=== PATIENT | male | born 1955 | race Caucasian/White ===

== ENCOUNTER 2017-09-17 14:44 | Inpatient (IN) | payer OTHER ==
[~2017-09-17] VITALS: Ht 175.3 cm; Wt 95.0 kg
[~2017-09-17 14:44] MED LIST: DIPH25CA61 PO
[2017-09-17 15:02] LABS: BASOPHILS # (AUTO) 0.02 x10^3/uL (0-0.1); BASOPHILS % (AUTO) 0 % (0-1); EOSINOPHILS # (AUTO) 0.05 x10^3/uL (0-0.4); EOSINOPHILS % (AUTO) 1 % (1-7); LYMPHOCYTES # (AUTO) 1.59 x10^3/uL (1-3.4); LYMPHOCYTES % (AUTO) 16 % (22-44); MD NO; MEAN CORPUSCULAR HEMOGLOBIN 30.6 pg (27.5-34.5); MEAN CORPUSCULAR HGB CONC 33.6 g/dL (33.2-36.2); MEAN CORPUSCULAR VOLUME 90.9 fL (81-97); MEAN PLATELET VOLUME 8.1 fL (7.4-10.4); MONOCYTES # (AUTO) 0.55 x10^3/uL (0.2-0.8); MONOCYTES % (AUTO) 6 % (2-9); NEUTROPHILS # (AUTO) 7.69 x10^3/uL (1.8-6.8); NEUTROPHILS % (AUTO) 78 % (42-75); PLATELET COUNT 286 x10^3/uL (130-400); RED BLOOD COUNT 5.65 x10^6/uL (4.38-5.82); RED CELL DISTRIBUTION WIDTH 14.2 % (9.4-14.8)
[2017-09-17 15:12] LABS: INTERNATIONAL NORMALIZED RATIO 1.07 (0.93-1.1)
[2017-09-17] MEDS ORDERED: ALTEPLASE 1 MG/ML ONE (15:14)
[2017-09-17] MEDS ORDERED: ALTEPLASE IV ONE (16:00)
[2017-09-17] MEDS ORDERED: ASPIRIN 325 MG TABLET PO ONE (16:00)
[2017-09-17] MEDS ORDERED: ALTEPLASE IVPush ONE (16:00)
[2017-09-17 16:18] LABS: CHOL/HDL RATIO 4.7; LDL/HDL RATIO 3.1 (0.5-3.0)
[2017-09-17] MEDS ORDERED: ENALAPRILAT 1.25 MG/ML, 2ML IV PRN (16:30)
[2017-09-17] MEDS ORDERED: ONDANSETRON 2MG/ML, 2ML IVPush PRN (16:30)
[2017-09-17] MEDS: ATORVASTATIN 80 MG TABLET PO SCH (20:13)
[2017-09-17 20:20] VITALS: BP 139/76
[2017-09-17 20:39] VITALS: BP 139/76
[2017-09-18 00:36] VITALS: BP 147/84
[2017-09-18] MEDS: ACETAMINOPHEN 325 MG TABLET PO PRN ×3 (01:44→17:42)
[2017-09-18 03:31] VITALS: BP 177/75
[2017-09-18 04:31] LABS: TROPONIN I < 0.015 ng/mL (0.000-0.045)
[2017-09-18 04:33] LABS: LDL/HDL RATIO 3.5 (0.5-3.0)
[2017-09-18] MEDS ORDERED: LORazepam 2 MG/ML, 1ML ONE (05:27)
[2017-09-18] MEDS ORDERED: LORazepam 2 MG/ML, 1ML IVPush ONE (05:30)
[2017-09-18] MEDS ORDERED: LORazepam 2 MG/ML, 1ML IVPush PRN (05:30)
[2017-09-18] MEDS ORDERED: PROPOFOL 100 ML IV ONE (05:55)
[2017-09-18 06:30] LABS: ALANINE AMINOTRANSFERASE 19 U/L (12-78); ALBUMIN 4.1 g/dL (3.4-5.0); ANION GAP 10 mmol/L (5-15); CALCIUM 8.8 mg/dL (8.5-10.1); CHLORIDE 108 mmol/L (98-107); CREATININE 1.15 mg/dL (0.7-1.3)
[2017-09-18 06:33] LABS: ALKALINE PHOSPHATASE 65 U/L (45-117); BILIRUBIN,TOTAL 0.9 mg/dL (0.2-1.0); TOTAL PROTEIN 7.9 g/dL (6.4-8.2)
[2017-09-18 06:35] LABS: TROPONIN I < 0.015 ng/mL (0.000-0.045)
[2017-09-18] MEDS ORDERED: ETOMIDATE 20 MG/10 ML ONE (08:00)
[2017-09-18] MEDS ORDERED: SUCCINYLCHOLINE 20 MG/ML, 10ML ONE (08:00)
[2017-09-18] MEDS ORDERED: ASPIRIN 81 MG TABLET CHEW PO/NG SCH (09:00)
[2017-09-18] MEDS: PROPOFOL 100 ML IV PRN ×2 (09:53→15:18)
[2017-09-18] MEDS ORDERED: LIDOCAINE-MPF 1%, 2ML ENDO PRN (10:30)
[2017-09-18] MEDS ORDERED: PHARMACY MAY ADJ FOR RENAL FX MC SCH (10:30)
[2017-09-18 11:28] LABS: MICROSCOPIC AUTO
[2017-09-18 11:29] LABS: CULTURE INDICATED? NO
[2017-09-18] MEDS ORDERED: SODIUM CHLORIDE 0.9% 1,000ML IVBOLUS ONE (12:00)
[2017-09-18] MEDS ORDERED: ASPIRIN 81 MG TABLET CHEW ONE (13:13)
[2017-09-18] MEDS: ASPIRIN 81 MG TABLET CHEW PO SCH (13:17)
[2017-09-18 14:16] LABS: HEMOGLOBIN A1C 5.3 % (4.2-6.3)
[2017-09-18] MEDS: LACTATED RINGERS 1,000 ML IV SCH (15:18)
[2017-09-18] MEDS: AMPICILLIN/SULBACTAM 3 GM in SODIUM CHLORIDE 0.9% 100 ML IV SCH ×2 (15:21→21:08)
[2017-09-18] MEDS: ATORVASTATIN 80 MG TABLET PO SCH (21:08)
[2017-09-19] MEDS: PROPOFOL 100 ML IV PRN (01:42)
[2017-09-19] MEDS: LACTATED RINGERS 1,000 ML IV SCH ×3 (01:42→19:30)
[2017-09-19] MEDS: AMPICILLIN/SULBACTAM 3 GM in SODIUM CHLORIDE 0.9% 100 ML IV SCH ×4 (04:24→21:05)
[2017-09-19 04:45] LABS: BASOPHILS # (AUTO) 0.04 x10^3/uL (0-0.1); BASOPHILS % (AUTO) 0 % (0-1); EOSINOPHILS # (AUTO) 0.03 x10^3/uL (0-0.4); EOSINOPHILS % (AUTO) 0 % (1-7); LYMPHOCYTES # (AUTO) 1.45 x10^3/uL (1-3.4); LYMPHOCYTES % (AUTO) 11 % (22-44); MD NO; MEAN CORPUSCULAR HEMOGLOBIN 31.3 pg (27.5-34.5); MEAN CORPUSCULAR HGB CONC 34.7 g/dL (33.2-36.2); MEAN CORPUSCULAR VOLUME 90.2 fL (81-97); MEAN PLATELET VOLUME 8.1 fL (7.4-10.4); MONOCYTES % (AUTO) 10 % (2-9); NEUTROPHILS # (AUTO) 10.77 x10^3/uL (1.8-6.8); NEUTROPHILS % (AUTO) 79 % (42-75); PLATELET COUNT 215 x10^3/uL (130-400); RED BLOOD COUNT 4.83 x10^6/uL (4.38-5.82); RED CELL DISTRIBUTION WIDTH 14.4 % (9.4-14.8)
[2017-09-19 04:58] LABS: ALANINE AMINOTRANSFERASE 13 U/L (12-78); ALBUMIN 3.2 g/dL (3.4-5.0); ANION GAP 8 mmol/L (5-15); CALCIUM 8.4 mg/dL (8.5-10.1); CHLORIDE 112 mmol/L (98-107); CREATININE 0.95 mg/dL (0.7-1.3)
[2017-09-19 05:00] LABS: ALKALINE PHOSPHATASE 49 U/L (45-117); BILIRUBIN,TOTAL 1.5 mg/dL (0.2-1.0); TOTAL PROTEIN 6.6 g/dL (6.4-8.2)
[2017-09-19] MEDS: PANTOPRAZOLE 40 MG IV IVPush SCH (09:16)
[2017-09-19] MEDS: ASPIRIN 81 MG TABLET CHEW PO SCH (09:16)
[2017-09-19] MEDS: ACETAMINOPHEN 325 MG TABLET PO PRN ×2 (11:41→20:58)
[2017-09-19] MEDS: ATORVASTATIN 80 MG TABLET PO SCH (20:58)
[2017-09-20] MEDS: ARTIFICIAL TEARS OINT 3.5 GM EACHEYE PRN (00:32)
[2017-09-20] MEDS: LACTATED RINGERS 1,000 ML IV SCH ×2 (03:51→15:30)
[2017-09-20] MEDS: AMPICILLIN/SULBACTAM 3 GM in SODIUM CHLORIDE 0.9% 100 ML IV SCH ×4 (03:51→21:07)
[2017-09-20 04:00] VITALS: BP 142/74
[2017-09-20 04:27] LABS: BASOPHILS # (AUTO) 0.03 x10^3/uL (0-0.1); BASOPHILS % (AUTO) 0 % (0-1); EOSINOPHILS # (AUTO) 0.03 x10^3/uL (0-0.4); EOSINOPHILS % (AUTO) 0 % (1-7); LYMPHOCYTES % (AUTO) 12 % (22-44); MD NO; MEAN CORPUSCULAR HEMOGLOBIN 31.2 pg (27.5-34.5); MEAN CORPUSCULAR HGB CONC 34.3 g/dL (33.2-36.2); MEAN CORPUSCULAR VOLUME 90.9 fL (81-97); MEAN PLATELET VOLUME 7.7 fL (7.4-10.4); MONOCYTES # (AUTO) 1.28 x10^3/uL (0.2-0.8); MONOCYTES % (AUTO) 10 % (2-9); NEUTROPHILS # (AUTO) 10.22 x10^3/uL (1.8-6.8); NEUTROPHILS % (AUTO) 78 % (42-75); PLATELET COUNT 181 x10^3/uL (130-400); RED BLOOD COUNT 4.49 x10^6/uL (4.38-5.82); RED CELL DISTRIBUTION WIDTH 13.7 % (9.4-14.8)
[2017-09-20 04:39] LABS: ANION GAP 7 mmol/L (5-15); CALCIUM 8.1 mg/dL (8.5-10.1); CHLORIDE 111 mmol/L (98-107)
[2017-09-20 04:44] LABS: ALANINE AMINOTRANSFERASE 13 U/L (12-78); ALKALINE PHOSPHATASE 44 U/L (45-117); BILIRUBIN,TOTAL 1.7 mg/dL (0.2-1.0); CREATININE 0.87 mg/dL (0.7-1.3); TOTAL PROTEIN 6.4 g/dL (6.4-8.2)
[2017-09-20] MEDS ORDERED: POTASSIUM PHOSPHATE 44 MEQ in SODIUM CHLORIDE 0.9% 500 ML IV ONE (06:00)
[2017-09-20] MEDS ORDERED: MAGNESIUM SULFATE PMX 2GM/50ML 50 ML IV ONE (06:00)
[2017-09-20] MEDS: PANTOPRAZOLE 40 MG IV IVPush SCH (09:24)
[2017-09-20] MEDS: ASPIRIN 81 MG TABLET CHEW PO SCH (14:49)
[2017-09-20] MEDS: ATORVASTATIN 80 MG TABLET PO SCH (20:27)
[2017-09-21] MEDS: AMPICILLIN/SULBACTAM 3 GM in SODIUM CHLORIDE 0.9% 100 ML IV SCH ×4 (03:00→21:24)
[2017-09-21] MEDS: LACTATED RINGERS 1,000 ML IV SCH (03:02)
[2017-09-21 03:57] VITALS: BP 118/69
[2017-09-21 05:19] LABS: BASOPHILS # (AUTO) 0.04 x10^3/uL (0-0.1); BASOPHILS % (AUTO) 0 % (0-1); EOSINOPHILS # (AUTO) 0.13 x10^3/uL (0-0.4); EOSINOPHILS % (AUTO) 1 % (1-7); LYMPHOCYTES # (AUTO) 1.97 x10^3/uL (1-3.4); LYMPHOCYTES % (AUTO) 17 % (22-44); MD NO; MEAN CORPUSCULAR HEMOGLOBIN 30.8 pg (27.5-34.5); MEAN CORPUSCULAR HGB CONC 34.1 g/dL (33.2-36.2); MEAN CORPUSCULAR VOLUME 90.3 fL (81-97); MEAN PLATELET VOLUME 8.1 fL (7.4-10.4); MONOCYTES # (AUTO) 1.25 x10^3/uL (0.2-0.8); MONOCYTES % (AUTO) 11 % (2-9); NEUTROPHILS # (AUTO) 8.02 x10^3/uL (1.8-6.8); NEUTROPHILS % (AUTO) 70 % (42-75); PLATELET COUNT 192 x10^3/uL (130-400); RED BLOOD COUNT 4.25 x10^6/uL (4.38-5.82); RED CELL DISTRIBUTION WIDTH 13.7 % (9.4-14.8)
[2017-09-21 05:44] LABS: CHLORIDE 113 mmol/L (98-107)
[2017-09-21 05:50] LABS: ALANINE AMINOTRANSFERASE 9 U/L (12-78); ALBUMIN 2.7 g/dL (3.4-5.0); ALKALINE PHOSPHATASE 41 U/L (45-117); ANION GAP 7 mmol/L (5-15); BILIRUBIN,TOTAL 1.1 mg/dL (0.2-1.0); CALCIUM 8.2 mg/dL (8.5-10.1); CREATININE 0.84 mg/dL (0.7-1.3); TOTAL PROTEIN 5.9 g/dL (6.4-8.2); TRIGLYCERIDES 106 mg/dL (50-200)
[2017-09-21] MEDS ORDERED: SODIUM PHOSPHATE 10 MMOL in SODIUM CHLORIDE 0.9% 500 ML IV ONE (07:30)
[2017-09-21] MEDS: VALPROATE SODIUM 500 MG in SODIUM CHLORIDE 0.9% 100 ML IV SCH ×3 (09:42→21:23)
[2017-09-21] MEDS: ASPIRIN 81 MG TABLET CHEW PO SCH (09:42)
[2017-09-21] MEDS: PANTOPRAZOLE 40 MG IV IVPush SCH (09:42)
[2017-09-21] MEDS: RIVAROXABAN 20 MG TABLET PO SCH (11:59)
[2017-09-21] MEDS: BUTALB/APAP/CAFFEINE 50MG/325MG/40MG NG PRN ×2 (12:00→19:28)
[2017-09-21] MEDS: ARTIFICIAL TEARS OINT 3.5 GM EACHEYE PRN (19:27)
[2017-09-21] MEDS: CIPROFLOXACIN OPHTH SOLN 0.3%, 5ML RIGHTEYE SCH ×3 (19:28→21:24)
[2017-09-21] MEDS: ATORVASTATIN 80 MG TABLET PO SCH (21:23)
[2017-09-22] MEDS: VALPROATE SODIUM 500 MG in SODIUM CHLORIDE 0.9% 100 ML IV SCH ×4 (03:01→22:03)
[2017-09-22] MEDS: AMPICILLIN/SULBACTAM 3 GM in SODIUM CHLORIDE 0.9% 100 ML IV SCH ×4 (03:01→21:16)
[2017-09-22 04:00] VITALS: BP 115/65
[2017-09-22] MEDS: RIVAROXABAN 20 MG TABLET PO SCH (07:01)
[2017-09-22 07:53] LABS: BASOPHILS # (AUTO) 0.03 x10^3/uL (0-0.1); BASOPHILS % (AUTO) 0 % (0-1); EOSINOPHILS # (AUTO) 0.34 x10^3/uL (0-0.4); EOSINOPHILS % (AUTO) 4 % (1-7); LYMPHOCYTES # (AUTO) 1.81 x10^3/uL (1-3.4); LYMPHOCYTES % (AUTO) 20 % (22-44); MD NO; MEAN CORPUSCULAR HEMOGLOBIN 30.9 pg (27.5-34.5); MEAN CORPUSCULAR HGB CONC 33.8 g/dL (33.2-36.2); MEAN CORPUSCULAR VOLUME 91.3 fL (81-97); MEAN PLATELET VOLUME 8.4 fL (7.4-10.4); MONOCYTES % (AUTO) 8 % (2-9); NEUTROPHILS # (AUTO) 6.13 x10^3/uL (1.8-6.8); NEUTROPHILS % (AUTO) 68 % (42-75); PLATELET COUNT 192 x10^3/uL (130-400); RED BLOOD COUNT 4.09 x10^6/uL (4.38-5.82); RED CELL DISTRIBUTION WIDTH 14.1 % (9.4-14.8)
[2017-09-22 07:55] LABS: ANION GAP 10 mmol/L (5-15); CHLORIDE 112 mmol/L (98-107); CREATININE 0.87 mg/dL (0.7-1.3)
[2017-09-22] MEDS: PANTOPRAZOLE 40 MG IV IVPush SCH (08:53)
[2017-09-22] MEDS: CIPROFLOXACIN OPHTH SOLN 0.3%, 5ML RIGHTEYE SCH ×3 (08:53→21:18)
[2017-09-22] MEDS: POTASSIUM CHLORIDE 10% 40 MEQ/30 ML UDC PO SCH ×2 (10:14→21:17)
[2017-09-22] MEDS: ASPIRIN 81 MG TABLET CHEW PO SCH (13:09)
[2017-09-22] MEDS ORDERED: ANTI INHIBITOR COAGULANT COMP IVPB ONE (14:00)
[2017-09-22] MEDS: ACETAMINOPHEN 325 MG TABLET PO PRN (14:43)
[2017-09-22] MEDS: ATORVASTATIN 80 MG TABLET PO SCH (21:17)
[2017-09-22] MEDS: LACTULOSE 20 GM/30 ML UDC PO SCH (21:17)
[2017-09-23] MEDS: VALPROATE SODIUM 500 MG in SODIUM CHLORIDE 0.9% 100 ML IV SCH ×4 (02:44→21:16)
[2017-09-23] MEDS: AMPICILLIN/SULBACTAM 3 GM in SODIUM CHLORIDE 0.9% 100 ML IV SCH (03:48)
[2017-09-23 05:00] VITALS: BP 147/83
[2017-09-23 05:30] LABS: ANION GAP 11 mmol/L (5-15); CALCIUM 7.9 mg/dL (8.5-10.1); CHLORIDE 114 mmol/L (98-107); CREATININE 0.75 mg/dL (0.7-1.3)
[2017-09-23 05:54] LABS: BASOPHILS # (AUTO) 0.03 x10^3/uL (0-0.1); BASOPHILS % (AUTO) 0 % (0-1); EOSINOPHILS # (AUTO) 0.45 x10^3/uL (0-0.4); EOSINOPHILS % (AUTO) 4 % (1-7); LYMPHOCYTES # (AUTO) 1.57 x10^3/uL (1-3.4); LYMPHOCYTES % (AUTO) 14 % (22-44); MD NO; MEAN CORPUSCULAR HEMOGLOBIN 31.2 pg (27.5-34.5); MEAN CORPUSCULAR HGB CONC 34.1 g/dL (33.2-36.2); MEAN CORPUSCULAR VOLUME 91.4 fL (81-97); MEAN PLATELET VOLUME 7.9 fL (7.4-10.4); MONOCYTES % (AUTO) 8 % (2-9); NEUTROPHILS # (AUTO) 8.46 x10^3/uL (1.8-6.8); NEUTROPHILS % (AUTO) 74 % (42-75); PLATELET COUNT 188 x10^3/uL (130-400); RED BLOOD COUNT 4.36 x10^6/uL (4.38-5.82); RED CELL DISTRIBUTION WIDTH 13.8 % (9.4-14.8)
[2017-09-23] MEDS ORDERED: PROCHLORPERAZINE 5 MG/ML, 2ML IVPush PRN ×2 (07:00→07:30)
[2017-09-23] MEDS ORDERED: chlorPROMAZINE 25 MG/ML, 1ML IM PRN (08:30)
[2017-09-23] MEDS: LACTULOSE 20 GM/30 ML UDC PO SCH ×2 (08:37→20:59)
[2017-09-23] MEDS: PANTOPRAZOLE 40 MG IV IVPush SCH (08:37)
[2017-09-23] MEDS: CIPROFLOXACIN OPHTH SOLN 0.3%, 5ML RIGHTEYE SCH ×3 (08:49→21:12)
[2017-09-23] MEDS: ARTIFICIAL TEARS OINT 3.5 GM EACHEYE PRN (08:49)
[2017-09-23] MEDS: ACETAMINOPHEN 325 MG TABLET PO PRN (19:31)
[2017-09-23] MEDS: ATORVASTATIN 80 MG TABLET PO SCH (21:12)
[2017-09-24] MEDS: VALPROATE SODIUM 500 MG in SODIUM CHLORIDE 0.9% 100 ML IV SCH ×4 (03:51→21:03)
[2017-09-24 05:00] VITALS: BP 127/61
[2017-09-24 05:07] LABS: CALCIUM 8.2 mg/dL (8.5-10.1); CHLORIDE 110 mmol/L (98-107)
[2017-09-24 05:10] LABS: ANION GAP 9 mmol/L (5-15); CREATININE 0.71 mg/dL (0.7-1.3); TRIGLYCERIDES 63 mg/dL (50-200)
[2017-09-24 05:43] LABS: BASOPHILS # (AUTO) 0.03 x10^3/uL (0-0.1); BASOPHILS % (AUTO) 0 % (0-1); EOSINOPHILS # (AUTO) 0.38 x10^3/uL (0-0.4); EOSINOPHILS % (AUTO) 4 % (1-7); LYMPHOCYTES # (AUTO) 0.92 x10^3/uL (1-3.4); LYMPHOCYTES % (AUTO) 9 % (22-44); MD NO; MEAN CORPUSCULAR HEMOGLOBIN 31.1 pg (27.5-34.5); MEAN CORPUSCULAR HGB CONC 34.2 g/dL (33.2-36.2); MEAN PLATELET VOLUME 8.6 fL (7.4-10.4); MONOCYTES # (AUTO) 0.96 x10^3/uL (0.2-0.8); MONOCYTES % (AUTO) 9 % (2-9); NEUTROPHILS # (AUTO) 7.96 x10^3/uL (1.8-6.8); NEUTROPHILS % (AUTO) 78 % (42-75); PLATELET COUNT 201 x10^3/uL (130-400); RED CELL DISTRIBUTION WIDTH 13.6 % (9.4-14.8)
[2017-09-24] MEDS: LACTULOSE 20 GM/30 ML UDC PO SCH ×2 (08:52→21:03)
[2017-09-24] MEDS: CIPROFLOXACIN OPHTH SOLN 0.3%, 5ML RIGHTEYE SCH ×3 (09:00→21:04)
[2017-09-24] MEDS: PANTOPRAZOLE 40 MG IV IVPush SCH (10:31)
[2017-09-24] MEDS: ATORVASTATIN 80 MG TABLET PO SCH (21:03)
[2017-09-25] MEDS: VALPROATE SODIUM 500 MG in SODIUM CHLORIDE 0.9% 100 ML IV SCH ×3 (02:43→14:43)
[2017-09-25 05:00] VITALS: BP 133/72
[2017-09-25 05:39] LABS: BASOPHILS # (AUTO) 0.01 x10^3/uL (0-0.1); BASOPHILS % (AUTO) 0 % (0-1); EOSINOPHILS # (AUTO) 0.34 x10^3/uL (0-0.4); EOSINOPHILS % (AUTO) 3 % (1-7); LYMPHOCYTES # (AUTO) 1.16 x10^3/uL (1-3.4); LYMPHOCYTES % (AUTO) 10 % (22-44); MD NO; MEAN CORPUSCULAR HEMOGLOBIN 31.2 pg (27.5-34.5); MEAN CORPUSCULAR HGB CONC 33.8 g/dL (33.2-36.2); MEAN CORPUSCULAR VOLUME 92.3 fL (81-97); MEAN PLATELET VOLUME 9.2 fL (7.4-10.4); MONOCYTES # (AUTO) 1.13 x10^3/uL (0.2-0.8); MONOCYTES % (AUTO) 10 % (2-9); NEUTROPHILS # (AUTO) 9.28 x10^3/uL (1.8-6.8); NEUTROPHILS % (AUTO) 78 % (42-75); PLATELET COUNT 193 x10^3/uL (130-400); RED BLOOD COUNT 4.16 x10^6/uL (4.38-5.82); RED CELL DISTRIBUTION WIDTH 14.1 % (9.4-14.8)
[2017-09-25 05:45] LABS: ANION GAP 8 mmol/L (5-15); CALCIUM 8.9 mg/dL (8.5-10.1); CHLORIDE 112 mmol/L (98-107)
[2017-09-25] MEDS: CIPROFLOXACIN OPHTH SOLN 0.3%, 5ML RIGHTEYE SCH ×2 (09:48→14:43)
[2017-09-25] MEDS: PANTOPRAZOLE 40 MG IV IVPush SCH (09:50)
[2017-09-25] MEDS: LACTULOSE 20 GM/30 ML UDC PO SCH (09:50)
[2017-09-25] MEDS: ACETAMINOPHEN 325 MG TABLET PO PRN (13:48)
[2017-09-25] MEDS ORDERED: MORPHINE SULFATE 4 MG/ML, 1ML IVPush ONE (16:30)
[2017-09-25] MEDS ORDERED: MORPHINE SULFATE 4 MG/ML, 1ML IVPush PRN (16:30)
[2017-09-25] MEDS ORDERED: LORazepam 2 MG/ML, 1ML IVPush PRN ×2 (16:30)
[2017-09-25] MEDS ORDERED: morphine SULFATE 10 MG/ML, 1ML ONE (16:46)
[2017-09-25] MEDS ORDERED: morphine SULFATE 10 MG/ML, 1ML IV SCH (17:00)
== END 2017-09-25 20:29 | disposition expired | DRG 207 ==
LOC: ED 15:46 → EDIP 15:47 → ED 16:25 → 4WST 18:42 → CCU 09-18 05:42
PROVIDERS: ADMIT Internal Medicine; ATTEND Internal Medicine
PROC: 0T9B70Z Drainage of Bladder with Drainage Device, Via Natural or Artificial Opening (ICD-10-PCS; 2017-09-18)
PROC: 5A1955Z Respiratory Ventilation, Greater than 96 Consecutive Hours (ICD-10-PCS; principal; 2017-09-20)
PROC: 0BH17EZ Insertion of Endotracheal Airway into Trachea, Via Natural or Artificial Opening (ICD-10-PCS; 2017-09-20)
DX: J96.01 Acute respiratory failure with hypoxia (principal); I63.9 Cerebral infarction, unspecified; G93.40 Encephalopathy, unspecified; J69.0 Pneumonitis due to inhalation of food and vomit; G40.89 Other seizures; G91.9 Hydrocephalus, unspecified; J98.11 Atelectasis; Q21.1 Atrial septal defect; Z99.11 Dependence on respirator [ventilator] status; E78.5 Hyperlipidemia, unspecified; H10.9 Unspecified conjunctivitis; H51.0 Palsy (spasm) of conjugate gaze; I11.9 Hypertensive heart disease without heart failure; R29.709 NIHSS score 9; Z51.5 Encounter for palliative care; Z66 Do not resuscitate; R73.9 Hyperglycemia, unspecified; Z82.49 Family history of ischemic heart disease and other diseases of the circulatory system
CPT/HCPCS: 0399T; 36415; 36600; 70450; 70496; 70498; 70551; 71045; 80047; 80048; 80053; 80061; 81001; 82803; 82962; 83036; 83735; 84100; 84478; 84484; 85025; 85610; 85730; 87040; 87070; 87081; 87205; 93005; 93306; 94002; 94003; 95819; 99291; J0295; J2704; J3230; J7198; C9113; J0330; J2060; J2270; J3475; J7030; J7040; J7120